=== PATIENT | female | born 2000 | race Caucasian/White ===

== ENCOUNTER 2020-01-23 19:42 | Emergency (ER) | payer OTHER, SELFPAY ==
[2020-01-23 19:54] VITALS: BP 116/75; PULSE 85; RESP 18; TEMP 36.8; O2SAT 100
--- NOTE | 2020-01-23 21:26 | ED.EAR ---
HPI - Ear Problem General Chief complaint: Ear <Aretha Royal PA-C - Last Filed: 01/23/20 21:37> Stated complaint: ear pain <MARY Corley Last Filed: 01/23/20 21:37> Time Seen by Provider: 01/23/20 20:56 <Aretha Royal PA-C - Last Filed: 01/23/20 21:37> Source: patient <MARY Corley Last Filed: 01/23/20 21:37> Mode of arrival: ambulatory <MARY Corley Last Filed: 01/23/20 21:37> Limitations: no limitations <MARY Corley Last Filed: 01/23/20 21:37> History of Present Illness HPI Narrative: This is a 19-year-old female that presents emergency department for left ear discomfort x2 days. Reports pressure in the ear. Denies fever or drainage. <MARY Corley Last Filed: 01/23/20 21:37> Related Data Home medications: Home Medications Medication Instructions Recorded Confirmed No Home Medications 01/23/20 01/23/20 <MARY Corley Last Filed: 01/23/20 21:37> Allergies/adverse reactions: Allergies Allergy/AdvReac Type Severity Reaction Status Date / Time No Known Allergies Allergy Verified 01/23/20 19:58 <MARY Corley Last Filed: 01/23/20 21:37> Review of Systems Review of Systems: Narrative: CONSTITUTIONAL: Denies fever ENT: Reports otalgia. <MARY Corley Last Filed: 01/23/20 21:37> All systems reviewed & are unremarkable except as noted in HPI and below <MARY Corley Last Filed: 01/23/20 21:37> PMFSH Past Medical History Medical History: Medical History (Updated 01/24/20 @ 00:00 by Background Daemon) No active medical problems <MARY Corley Last Filed: 01/23/20 21:37> Social History Social History: Social History (Updated 01/23/20 @ 21:30 by Aretah Royal PA-C) Substance use: never <Aretha Royal PA-C - Last Filed: 01/23/20 21:37> Exam Narrative: Exam Narrative: GENERAL: Well-appearing, well-nourished, and in no acute distress. HEAD: Normocephalic, atraumatic. EYES: EOMI. ENT: Bilateral TMs pearly perales non-bulging. Left external auditory canal with mild erythema and edema NECK: Supple. No adenopathy or masses. EXTREMITIES: Normal range of motion. No edema. SKIN: Warm, dry, no rash. NEURO: No focal deficits. Alert and oriented x3. PSYCH: Normal mood and affect <Aretha Royal PA-C - Last Filed: 01/23/20 21:37> Course Vital Signs Vital signs: Vital Signs Temperature 36.8 C 01/23/20 19:54 Pulse Rate 85 01/23/20 19:54 Respiratory Rate 18 01/23/20 19:54 Blood Pressure 116/75 01/23/20 19:54 Pulse Oximetry 100 01/23/20 19:54 Temperature 37.1 C 01/23/20 21:57 Pulse Rate 85 01/23/20 21:57 Respiratory Rate 18 01/23/20 21:57 Blood Pressure 117/65 01/23/20 21:57 Pulse Oximetry 100 01/23/20 21:57 <Aretha Royal PA-C - Last Filed: 01/23/20 21:37> Vital Signs Temperature 36.8 C 01/23/20 19:54 Pulse Rate 85 01/23/20 19:54 Respiratory Rate 18 01/23/20 19:54 Blood Pressure 116/75 01/23/20 19:54 Pulse Oximetry 100 01/23/20 19:54 Temperature 37.1 C 01/23/20 21:57 Pulse Rate 85 01/23/20 21:57 Respiratory Rate 18 01/23/20 21:57 Blood Pressure 117/65 01/23/20 21:57 Pulse Oximetry 100 01/23/20 21:57 <Nabil Mantilla MD - Last Filed: 01/24/20 05:21> Medical Decision Making MDM Narrative Medical decision making narrative: Patient presents to the emergency department with left ear discomfort. Findings consistent with otitis externa. Patient will be started on antibiotic eardrops. She is to follow-up with clinic on campus at her school. She was given warnings to return to the ER <Aretha Royal PA-C - Last Filed: 01/23/20 21:37> Vital Signs Vital Signs: Vital Signs Temperature 36.8 C 01/23/20 19:54 Pulse Rate 85 01/23/20 19:54 Respiratory Rate 18 01/23/20 19:54 Blood Pressure 116/75 08
[2020-01-23] MEDS: CIPROFLOXACIN HC OTIC 10 ML 3 DROP LEFT EAR (21:49)
[2020-01-23 21:57] VITALS: BP 117/65; PULSE 85; RESP 18; TEMP 37.1; O2SAT 100
== END 2020-01-23 21:59 | disposition home or self-care (01) ==
PROVIDERS: Emergency Provider Emergency Medicine
DX: H60.92 Unspecified otitis externa, left ear (principal)
CPT/HCPCS: 99283; A9270